=== PATIENT | female | born 1985 ===

== ENCOUNTER 2018-07-24 21:58 | Emergency (ER) | payer BC ==
[2018-07-24 21:59] VITALS: BMI 28.1
[2018-07-24 22:07] VITALS: O2SAT 100
--- NOTE | 2018-07-24 22:29 | C.PDOC ---
History Of Present Illness 33 year old female is sent to the ED by her PMD for evaluation of high blood pressure while at the office. Patient's blood pressure was 160 systolic in the office. Patient also c/o headache and high blood pressure that she has been h aving for a couple of weeks. Patient denies fever, chills, visual changes, dizziness, nausea, vomit, CP, SOB, weakness, numbness. Time Seen by Provider: 07/24/18 22:17 Chief Complaint (Nursing): High Blood Pressure History Per: Patient History/Exam Limitations: no limitations Onset/Duration Of Symptoms: Days Current Symptoms Are (Timing): Still Present Associated Symptoms: Headache Quality Of Symptoms: Asymptomatic Recent travel outside of the [place]: No Additional History Per: Patient Past Medical History Reviewed: Historical Data, Nursing Documentation, Vital Signs Vital Signs: Last Vital Signs Temp 98.2 F 07/24/18 22:02 Pulse 74 07/24/18 22:02 Resp 16 07/24/18 22:02 BP 191/110 H 07/24/18 22:02 Pulse Ox 100 07/24/18 22:02 - Medical History PMH: Anemia, HTN, Kidney Stones, Chronic Kidney Disease Surgical History: Appendectomy, Hernia Repair Family History: States: Unknown Family Hx - Social History Hx Alcohol Use: No Hx Substance Use: No Review Of Systems Constitutional: Negative for: Fever, Chills Eyes: Negative for: Vision Change Cardiovascular: Negative for: Chest Pain, Palpitations Respiratory: Negative for: Cough, Shortness of Breath Gastrointestinal: Negative for: Nausea, Vomiting, Abdominal Pain, Diarrhea Skin: Negative for: Rash Neurological: Positive for: Headache. Negative for: Weakness, Numbness, Dizziness Physical Exam - Physical Exam Appears: Non-toxic, No Acute Distress Skin: Normal Color, Warm, Dry Head: Atraumatic, Normacephalic Eye(s): bilateral: Normal Inspection Neck: Normal ROM, Supple Chest: Symmetrical Cardiovascular: Rhythm Regular Respiratory: Normal Breath Sounds, No Rales, No Rhonchi, No Wheezing Gastrointestinal/Abdominal: Soft, No Tenderness, No Guarding, No Rebound Extremity: Normal ROM, No Tenderness, No Swelling Neurological/Psych: Oriented x3, Normal Speech, Normal Cognition Gait: Steady ED Course And Treatment - Laboratory Results Result Diagrams: 07/24/18 22:54 07/24/18 22:54 O2 Sat by Pulse Oximetry: 100 (ON RA) Pulse Ox Interpretation: Normal - CT Scan/US CT head Other Rad Studies (CT/US): Read By Radiologist, Radiology Report Reviewed CT/US Interpretation: CT of the head. Clinical history: Headache. Technique: Multiple axial CT images were obtained through the head without administration of contrast. Comparison: None. Findings: The ventricles and sulci are symmetric bilaterally. There is no evidence of acute hemorrhage or infarct. There is no midline shift, mass effect, or extra-axial fluid collection. The osseous structures are unremarkable. There is a large mucus retention cyst in the right maxillary sinus. The other visualized paranasal sinuses and mastoid air cells are clear. Impression: 1. No acute intracranial hemorrhage or infarct. 2. Large mucus retention cyst in the right maxillary sinus. . Electronically signed on Jul 24, 2018 11:17:36 PM EST by: Sundeep Cárdenas M.D., Certified by [facility] Medical Decision Making Medical Decision Making: suspect essential htn, ro htn urgency vs emregency. pt well apperaing pn phone i nnad. Plan: * CT head * EKG * Labs * Tylenol 975 mg PO * UA labs ct neg. symptosm resolved. b/p improved. attempted to page pmd nadira. no callback. will dc. Disposition - Disposition Disposition: HOME/ ROUTINE Disposition Time: 01:00 Condition: STABLE Additional Instructions: follow up with your doctor. return to er with worsening symptoms or concerns. Prescriptions: RX: hydroCHLOROthiazide [Microzide] 12.5 mg PO DAILY #7 cap Instructions: High Blood Pressure in Adults, Headache, Adult Forms: [facility] ([place]) - Clinical Impression Clinical Impression: Hypertension - Scribe Statement The provider has reviewed the documentation as recorded by the Scribe Erich Ramirez All medical record entries made by the Scribe were at my direction and personally dictated by me. I have reviewed the chart and agree that the record accurately reflects my personal performance of the history, physical exam, medical decision making, and the department course for this patient. I have also personally directed, reviewed, and agree with the discharge instructions and disposition.
[2018-07-24 22:58] LABS: BASO # 0.1 K/uL (0.0-0.2); BASO % 0.8 % (0.0-2.0); EOS # 0.1 K/uL (0.0-0.7); EOS % 1.4 % (0.0-4.0); HEMOGLOBIN 12.5 g/dL (11.0-16.0); LYMPH # 1.8 K/uL (1.0-4.3); LYMPH % 25.7 % (20.0-40.0); MEAN CELL VOLUME 80.2 fL (81.0-99.0); MEAN CORPUSCULAR HEMOGLOBIN 26.8 pg (27.0-31.0); MEAN CORPUSCULAR HGB CONC 33.4 g/dL (33.0-37.0); MEAN PLATELET VOLUME 7.8 fL (7.2-11.7); MONO # 0.5 K/uL (0.0-0.8); MONO % 6.8 % (0.0-10.0); NEUT # 4.6 K/uL (1.8-7.0); NEUT % 65.3 % (50.0-75.0); NRBC % 0.1 % (0.0-2.0); RBC 4.65 Mil/uL (3.80-5.20); RED CELL DISTRIBUTION WIDTH 15.9 % (11.5-14.5)
[2018-07-24 23:06] LABS: PROTHROMBIN TIME 10.7 SECONDS (9.7-12.2)
[2018-07-24 23:10] LABS: ALB/GLOB RATIO 1.3 (1.0-2.1); ALBUMIN 4.1 g/dL (3.5-5.0); ALT/SGPT 24 U/L (9-52); AST/SGOT 23 U/L (14-36); BLOOD UREA NITROGEN 18 mg/dL (7-17); CALCIUM 8.8 mg/dl (8.6-10.4); GFR NON-AFRICAN AMERICAN > 60
[2018-07-24 23:49] LABS: HCG,QUALITATIVE URINE NEGATIVE (NEGATIVE); SQUAMOUS EPITHIAL 3 /hpf (0-5); URINE BACTERIA RARE (<OCC); URINE BILIRUBIN NEGATIVE (NEGATIVE); URINE BLOOD 1+ (NEGATIVE); URINE CLARITY Clear (Clear); URINE COLOR Straw (YELLOW); URINE GLUCOSE (UA) NORMAL (Normal); URINE LEUKOCYTE ESTERASE NEG Leu/uL (Negative); URINE PROTEIN NEGATIVE (NEGATIVE); URINE UROBILINOGEN NORMAL mg/dL (0.2-1.0)
[2018-07-25 00:56] VITALS: PULSE 60; RESP 20; TEMP 98
[2018-07-25 01:02] VITALS: BP 150/100
--- NOTE | 2018-07-25 09:17 | CT ---
Date of service: 07/24/2018 PROCEDURE: CT HEAD WITHOUT CONTRAST. HISTORY: shoemaker COMPARISON: None available. TECHNIQUE: Axial computed tomography images were obtained through the head/brain without intravenous contrast. Radiation dose: Total exam DLP = 1067.78 mGy-cm. This CT exam was performed using one or more of the following dose reduction techniques: Automated exposure control, adjustment of the mA and/or kV according to patient size, and/or use of iterative reconstruction technique. FINDINGS: HEMORRHAGE: No intracranial hemorrhage. BRAIN: No mass effect or edema. No atrophy or chronic microvascular ischemic changes. VENTRICLES: Unremarkable. No hydrocephalus. CALVARIUM: Unremarkable. PARANASAL SINUSES: There is mucosal retention cyst noted in the right maxillary sinus with almost complete opacification of the sinus. Mild mucosal thickening noted in the right sphenoid sinus. MASTOID AIR CELLS: Unremarkable as visualized. No inflammatory changes. OTHER FINDINGS: None. IMPRESSION: No evidence of acute intracranial hemorrhage mass effect or midline shift. Large mucosal retention cyst versus polyp in the right maxillary sinus. Preliminary report was submitted by [facility] contains concordant findings.
== END 2018-07-25 01:02 | disposition home or self-care (01) ==
LOC: C.ER 21:58
DX: I10 Essential (primary) hypertension (principal)